=== PATIENT | female | born 1980 | race Caucasian/White ===

== ENCOUNTER 2019-07-10 10:00 | Emergency (ER) | payer OTHER, SELFPAY ==
--- NOTE | ~2019-07-10 | XR_ITS ---
EXAMINATION: XR elbow LT min 3V DATE: 07/10/2019 11:22 INDICATION: Left elbow deformity post fall TECHNIQUE: Anteroposterior, two oblique and lateral views of the left elbow were obtained. COMPARISON: None. FINDINGS: Approximately 1 mm anterior displacement of a small intra-articular no other fractures identified. Al ignment of the remainder of the bones is normal. Joint spaces are normal. Fracture involving the tip of the coronoid process. Small left elbow joint effusion with some displacement the anterior and post erior fat pads. IMPRESSION: 1. Small minimally displaced intra-articular fracture involving the tip of the coronoid process of th e proximal small bowel with likely secondary small left elbow joint effusion. Reviewed, dictated and finalized at location A. ONARY FUNCTION TECHNOLOGIST IMPRESSION: 1. Small minimally displaced intra-articular fracture involving the tip of the coronoid process of the proximal small bowel with likely secondary small left e lbow joint effusion.
--- NOTE | ~2019-07-10 | XR_ITS ---
EXAMINATION: XR wrist LT min 3V DATE: 07/10/2019 11:22 INDICATION: Left wrist injury post fall TECHNIQUE: Posteroanterior, ulnar deviation, oblique, and lateral views of the left wrist were obtain ed. COMPARISON: none FINDINGS: Bone alignment is normal. Portion of the distal diaphysis of the left fourth proximal phalanx is obsc ured by a metallic ring. No fracture. Joint spaces are normal. IMPRESSION: 1. No osseous abnormality. Reviewed, dictated and finalized at location A. O VISUAL EQUIPMENT RENTAL CLERK IMPRESSION: 1. No osseous abnormality.
[2019-07-10 10:02] VITALS: BP 113/55; PULSE 72; RESP 15; TEMP 37.4; O2SAT 100
--- NOTE | 2019-07-10 10:08 | PC.NURSE ---
SPOKE WITH DEBBIE BELTRAN ABOUT PT ARM, VERBAL ORDER FOR STAT ELBOW AND WRIST XRAYS AT THIS TIME.
--- NOTE | 2019-07-10 13:33 | ED.GENADULT ---
HPI - General Adult General Chief complaint: Extremity Injury, Upper Stated complaint: left arm inj Time Seen by Provider: 07/10/19 11:28 Source: patient Mode of arrival: ambulatory Limitations: no limitations History of Present Illness HPI narrative: Patient is a 38-year-old female who presents to emergency department for evaluation of left elbow injury that occurred walking this morning and rolling out of bed onto a right upper extremity injuring the elbow where she now has moderate aching pain pain is worse with activity and movements. Denies other injuries or complaints has not anything for pain Related Data Home Medications Medication Instructions Recorded Confirmed No Home Medications 07/10/19 07/10/19 Allergies Allergy/AdvReac Type Severity Reaction Status Date / Time No Known Allergies Allergy Unverified 07/10/19 11:22 Review of Systems Review of Systems: Narrative: CONSTITUTIONAL: Denies fever, chills, or sweats. SKIN: Positive for bruising and swelling MUSCULOSKELETAL: Positive for left elbow pain NEUROLOGIC: Denies numbness PMFSH Family History Family History Mother Family history of hypercholesterolemia Grandparent Family history of hypercholesterolemia, Onset Age: 79 Hypertension Family history of Parkinson's disease, Onset Age: 79 Carcinoma of colon, Onset Age: 79 Family history of lung cancer, Onset Age: 54 Family history of malignant neoplasm of breast Family history of emphysema, Onset Age: 54 Family history of congestive heart failure, Onset Age: 58 Family history of renal cell carcinoma, Onset Age: 79 Father Hypertension Sibling Hypertension Family history of malignant neoplasm of cervix Social History Social History Smoking status: Never smoker Tobacco type: e-cigarettes Alcohol intake: current Gender identity (if verbalized by the patient): Female Exam Narrative: Exam Narrative: GENERAL: Well-appearing, well-nourished, and in no acute distress. HEAD: Normocephalic, atraumatic. EYES: PERRLA and EOMI. ENT: Nares clear, no rhinorrhea or epistaxis. Mucous membranes moist. EXTREMITIES: Swelling and tenderness of the right elbow joint no other deformities of the extremity SKIN: Warm, dry, no rash. NEURO: No focal deficits. Alert and oriented x3. Neurovascularly intact. Capillary refill less than 2 seconds PSYCH: Normal mood and affect. Course Course Emergency Course: Patient in the room aware of discussion with orthopedic surgery agreeing to follow-up as directed Consultations Consultation #1: Discussed case with orthopedic surgeon who will follow patient in clinic Date: 07/10/19 Vital Signs Vital signs: Vital Signs Temperature 99.4 F 07/10/19 10:02 Pulse Rate 72 07/10/19 10:02 Respiratory Rate 15 07/10/19 10:02 Blood Pressure 113/55 L 07/10/19 10:02 Pulse Oximetry 100 07/10/19 10:02 Temperature 99.4 F 07/10/19 10:02 Pulse Rate 72 07/10/19 10:02 Respiratory Rate 15 07/10/19 10:02 Blood Pressure 113/55 L 07/10/19 10:02 Pulse Oximetry 100 07/10/19 10:02 Medical Decision Making MDM Narrative Medical decision making narrative: Patients injury or pain is consistent with musculoskeletal etiology. No signs of neurological or vascular compromise on exam. Compartments and tisues are soft without signs of compartment syndrome. Pain is felt appropriate for further evaluation on an outpatient basis. Vital Signs Vital Signs: Vital Signs Temperature 99.4 F 07/10/19 10:02 Pulse Rate 72 07/10/19 10:02 Respiratory Rate 15 07/10/19 10:02 Blood Pressure 113/55 L 07/10/19 10:02 Pulse Oximetry 100 07/10/19 10:02 Temperature 99.4 F 07/10/19 10:02 Pulse Rate 72 07/10/19 10:02 Respiratory Rate 15 07/10/19 10:02 Blood Pressure 113/55 L 07/10/19 10:02 Pulse Oximetry 100 07/10
[2019-07-10] MEDS: KETOROLAC (*BKC) 60 MG/2 ML VIAL 30 MG IM (14:07)
== END 2019-07-10 14:10 | disposition home or self-care (01) ==
PROVIDERS: Emergency Provider Family Medicine; PCP Internal Medicine
DX: S52.042A Displaced fracture of coronoid process of left ulna, initial encounter for closed fracture (principal); F17.290 Nicotine dependence, other tobacco product, uncomplicated; W06.XXXA Fall from bed, initial encounter
CPT/HCPCS: 29105; 73080; 73110; 96372; 99284; A4565; J1885

== ENCOUNTER 2020-01-27 09:58 | Emergency (ER) | payer OTHER, SELFPAY ==
[2020-01-27 10:04] VITALS: BP 104/51; PULSE 45; RESP 16; TEMP 36.4; O2SAT 100
--- NOTE | 2020-01-27 10:31 | ED.URI ---
HPI - URI/Sore Throat General Chief Complaint: Upper Respiratory Infection Stated Complaint: sore throat Source: patient and RN notes reviewed Limitations: no limitations History of Present Illness HPI Narrative: The patient, a non-smoker/occasional drinker, presents with sore throat. Patient states she has a 2-day history of sore scratchy throat, runny nose, associated with a white spot only this morning. No fever, cough, chest pain, loss of taste/smell, earache, travel history, sick family-she has children being homeschooled. Symptoms are mild, worse with swallowing mildly. Patient advised to be provided prescription for COVID testing today, as she mentioned she has a friend of a [id number] with COVID Related Data Allergies Allergy/AdvReac Type Severity Reaction Status Date / Time No Known Allergies Allergy Unverified 07/10/19 11:22 Review of Systems Review of Systems: Narrative: General/Constitutional: No weight loss,fever Eyes: N0: Redness,discharge Ears/Nose/Throat: No: Epistaxis,ear discharge Respiratory: Denies: Hemoptysis Gastrointestinal: No Vomiting, Bleeding-rectal Skin: No Lumps, eruption Neurologic: No Focal Weakness,Sz Hematologic: Denies: Petechiae/Purpura Psychiatric: No: Suicida ideationl All Other Systems: Reviewed and Negative PMFSH Social History Social History Smoking status: Never smoker Tobacco type: e-cigarettes/vaping Alcohol intake: current Gender identity (if verbalized by the patient): Female Comments At time of signature, agree with nursing past medical, surgical, social and family history. There is no relevant family history pertinent to the presenting complaint Exam Narrative: Exam Narrative: General Appearance: Well appearing, Well nourished EYE: PERRLA, Conjunctiva clear Ears: Auditory canal normal, TM normal Nose: Rhinorrhea, Mucousal erythema Mouth/Throat: MM moist, Uvula midline, Pharyngeal erythema Neck: Supple, No adenopathy Respiratory: No respiratory distress, Breath sounds equal, airway patent Skin: Warm, Dry Neurological: A&O x3, Normal affect Course Vital Signs Vital signs: Vital Signs Temperature 97.6 F 01/27/20 10:04 Pulse Rate 45 L 01/27/20 10:04 Respiratory Rate 16 01/27/20 10:04 Blood Pressure 104/51 L 01/27/20 10:04 Pulse Oximetry 100 01/27/20 10:04 Temperature 97.6 F 01/27/20 10:04 Pulse Rate 45 L 01/27/20 10:04 Respiratory Rate 16 01/27/20 10:04 Blood Pressure 104/51 L 01/27/20 10:04 Pulse Oximetry 100 01/27/20 10:04 MDM - URI/Sore Throat Lab Data Labs: Strep Screen Presumptive Negative *(Reference Range: Negative)* Discharge Plan Discharge Clinical Impression: Pharyngitis Qualifiers: Pharyngitis/tonsillitis etiology: unspecified etiology Qualified Code(s): J02.9 - Acute pharyngitis, unspecified Patient Disposition: Home, Self-Care Condition: Stable Instructions: Antibiotic Form, Pharyngitis (ED) Prescriptions: New azithromycin 250 mg tablet See Rx Instructions .ROUTE .COMPLEX Qty: 6 RF: 0 Lidocaine Viscous 2 % solution 5 ml MUCOUS MEM QID PRN (Reason: pain) Qty: 100 RF: 0 Interventions: Discharge Disposition Last Done: 01/27/20 10:40 Follow-up/Referrals: Sanjeev Mejia MD [Primary Care Provider] - Discharge Date/Time: 01/27/20 10:42
== END 2020-01-27 10:42 | disposition home or self-care (01) ==
PROVIDERS: Emergency Provider Emergency Medicine; PCP Internal Medicine
DX: J02.9 Acute pharyngitis, unspecified (principal); F17.200 Nicotine dependence, unspecified, uncomplicated
CPT/HCPCS: 87081; 87880; 99213; G0463

== ENCOUNTER → 2021-02-25 03:32 | Outpatient (CLI) | payer OTHER, SELFPAY ==
[2021-02-25 19:14] LABS: SARS-CoV-2 RNA PCR Negative
== END ==
PROVIDERS: PCP Family Medicine; Visit Provider Family Medicine
DX: Z20.822 Contact with and (suspected) exposure to COVID-19 (principal)
CPT/HCPCS: C9803; U0003; U0005

== ENCOUNTER → 2021-04-14 10:02 | Outpatient (CLI) | payer OTHER, MEDICAID, SELFPAY ==
[2021-04-14 18:36] LABS: SARS-CoV-2 RNA PCR Negative
== END ==
PROVIDERS: PCP Family Medicine; Visit Provider Family Medicine
DX: R05.9 Cough, unspecified (principal); Z20.822 Contact with and (suspected) exposure to COVID-19
CPT/HCPCS: C9803; U0003; U0005

== ENCOUNTER 2024-04-16 09:41 | Emergency (ER) | payer OTHER, SELFPAY ==
--- NOTE | 2024-04-16 09:45 | ED.URI ---
HPI - URI/Sore Throat General Chief Complaint: Upper Respiratory Infection Stated Complaint: Upper Respiratory Symptoms History of Present Illness HPI Narrative: 43 y/o female presented with c/o nasal congestion, fatigue, cough and head pressure for one week. Denies sob, wheezing, n/v/d/f/c. Taking Sudafed. Works as a school nurse. Related Data Home Medications Medication Instructions Recorded Confirmed losartan 25 mg tablet 25 mg PO DAILY 04/16/24 04/16/24 norgestimate-ethinyl estradiol 1 tablet PO DAILY 04/16/24 04/16/24 0.18 mg/0.215mg/0.25mg-35 mcg(28)tablet (Tri-Sprintec (28)) Allergies Allergy/AdvReac Type Severity Reaction Status Date / Time No Known Allergies Allergy Unverified 04/16/24 09:52 Review of Systems Review of Systems: CONSTITUTIONAL: Denies body aches, fever, chills, or sweats. EYES: Denies visual changes, redness, or discharge. ENT: reports rhinorrhea, congestion, denies sore throat or otalgia. CARDIOVASCULAR: Denies chest pain, palpitations, or edema. RESPIRATORY: Denies dyspnea. GASTROINTESTINAL: Denies abdominal pain, nausea, vomiting, or diarrhea. SKIN: Denies rash NEUROLOGIC: reportss headache PMFSH Family History Family History Mother Family history of hypercholesterolemia Grandparent Family history of hypercholesterolemia, Onset Age: 79 Hypertension Family history of Parkinson's disease, Onset Age: 79 Carcinoma of colon, Onset Age: 79 Family history of lung cancer, Onset Age: 54 Family history of malignant neoplasm of breast Family history of emphysema, Onset Age: 54 Family history of congestive heart failure, Onset Age: 58 Family history of renal cell carcinoma, Onset Age: 79 Father Hypertension Sibling Hypertension Family history of malignant neoplasm of cervix Social History Social History Smoking status: Never smoker Tobacco type: e-cigarettes/vaping Alcohol intake: current Gender identity (if verbalized by the patient): Female Exam Narrative: GENERAL: mildly Ill-appearing, no acute distress. EYES: conjunctivae clear ENT: Mucous membranes moist. Lesion to lower lip, dried c/w fever blister. TMs pearly elizondo with normal light reflex bilaterally; no tragal tenderness. Oropharynx erythematous without lesions. No drooling, no hoarseness, no trismus, uvula midline. No tripod positioning, hot potato voice, or soft palate swelling. NECK: Supple. No lymphadenopathy CHEST: Clear to auscultation, breath sounds equal. No respiratory distress, speaks in full sentences. HEART: Regular rate and rhythm. No murmur heard. SKIN: Warm, dry, no rash. NEURO: Alert and oriented x3. Course Course Emergency Course: Patient is aware of diagnosis, understands and agrees to treatment plan. Anticipatory guidance given. Patient agrees to follow-up as directed and is aware of reasons to seek care at the emergency department. Portions of this record may have been created with voice recognition software Level of Care: Express Care Visit MDM - URI/Sore Throat MDM Narrative Medical decision making narrative: Discussed physical exam findings, Advise supportive treatments. Patient is appropriate for outpatient treatment and follow-up. Differential Diagnosis Differential diagnosis: Likely upper respiratory infection, viral infection and pharyngitis Discharge Plan Discharge Clinical Impression: Upper respiratory infection Patient Disposition: Home, Self-Care Condition: Stable Instructions: Antibiotic Form, Upper Respiratory Infection (ED) Additional Instructions: Recommend Flonase spray and Zyrtec (or Claritin/Kaylyn) over the counter Cough syrup may cause drowsiness; avoid driving or take it at night time. Tylenol 1000mg every 8 hours as needed for pain Symptomatic treatment includes: rest, fluids, and increase humidity of the air at home. If no improvement in the next 3-5 days you can start the antibiotic Follow up with your primary care provider in 1 week. Go to the ER for worsening symptoms or concerns. Prescriptions: New amoxicillin-pot clavulanate 875-125 mg tablet 1 tablet PO Q12H 7 Days Qty: 14 0RF No Action losartan 25 mg tablet 25 mg PO DAILY norgestimate-ethinyl estradiol [Tri-Sprintec (28)] 0.18/0.215/0.25 mg-35 mcg (28) tablet 1 tablet PO DAILY Follow-up/Referrals: PHYSICIAN,ENTERTAINMENT DANCER [Primary Care Provider] - Time of Disposition: 09:57
[2024-04-16 09:48] VITALS: BP 146/90; PULSE 82; RESP 16; TEMP 36.4; O2SAT 100
== END 2024-04-16 09:59 | disposition home or self-care (01) ==
PROVIDERS: Emergency Provider Nurse Practitioner Family
DX: J06.9 Acute upper respiratory infection, unspecified (principal); F17.290 Nicotine dependence, other tobacco product, uncomplicated
CPT/HCPCS: 99213; G0463

== ENCOUNTER 2024-07-03 13:29 | Emergency (ER) | payer OTHER, SELFPAY ==
[2024-07-03 13:44] VITALS: BP 131/87; PULSE 76; RESP 16; TEMP 36.7; O2SAT 100
--- NOTE | 2024-07-03 13:52 | ED.URI ---
HPI - URI/Sore Throat General Chief Complaint: Upper Respiratory Infection Stated Complaint: Sinus Infection Symptoms Time Seen by Provider: 07/03/24 14:05 Source: patient, RN notes reviewed and old records reviewed Mode of arrival: ambulatory Limitations: no limitations History of Present Illness HPI Narrative: 43 year old female accompanied by son presents to express care with complaints of sinus congestion with drainage and headache with sinus pressure which started on the 24 of June with 4 days of fevers which did seem to get better till Yesterday. Patient reports that she has yellow green nasal congestion and drainage, with headache and pressure. Patient reports no present fevers, chills or body aches, has been taking Ibuprofen, Tylenol and Sudafed. MD elicited complaint: rhinorrhea, nasal congestion, sinus pain and other (headache) Onset (ago): day(s) (10) Severity: moderate Able to tolerate fluids by mouth: Yes Treatments prior to arrival: acetaminophen, ibuprofen and other (Sudafed) Related Data Home Medications ?Medication ?Instructions ?Recorded ?Confirmed ?Last Taken ?Type losartan 25 mg tablet 25 mg PO DAILY 04/16/24 07/03/24 Unknown History norgestimate-ethinyl estradiol 1 tablet PO DAILY 04/16/24 07/03/24 Unknown History 0.18 mg/0.215mg/0.25mg-35 mcg(28)tablet (Tri-Sprintec (28)) Allergies Allergy/AdvReac Type Severity Reaction Status Date / Time No Known Allergies Allergy Unverified 07/03/24 13:40 Review of Systems Review of Systems: CONSTITUTIONAL: Denies malaise, chills, sweats, or fever. EYES: Denies visual changes, redness, or discharge. ENT: Reports rhinorrhea, congestion, sinus pain, no otalgia and no sore throat. CARDIOVASCULAR: Denies chest pain, palpitations, or edema. RESPIRATORY: Reports cough.? Denies dyspnea. GASTROINTESTINAL: Denies abdominal pain, nausea, vomiting, diarrhea SKIN: Denies rash or itching. MUSCULOSKELETAL: Denies myalgia. NEUROLOGIC: Reports headache. All systems reviewed & are unremarkable except as noted in HPI and below PMFSH Past Medical History Medical History Hypertension Family History Family History Mother Family history of hypercholesterolemia Grandparent Family history of hypercholesterolemia, Onset Age: 79 Hypertension Family history of Parkinson's disease, Onset Age: 79 Carcinoma of colon, Onset Age: 79 Family history of lung cancer, Onset Age: 54 Family history of malignant neoplasm of breast Family history of emphysema, Onset Age: 54 Family history of congestive heart failure, Onset Age: 58 Family history of renal cell carcinoma, Onset Age: 79 Father Hypertension Sibling Hypertension Family history of malignant neoplasm of cervix Social History Social History Smoking status: Never smoker Tobacco type: e-cigarettes/vaping Alcohol intake: current Gender identity (if verbalized by the patient): Female Comments At time of signature, agree with nursing past medical, surgical, social and family history. There is no relevant family history pertinent to the presenting complaint Exam Narrative: GENERAL: Well-appearing, well-nourished, and in no acute distress. HEAD: Normocephalic EYES: PERRLA, conjunctivae clear ENT: Nares clear, turbinates edematous and erythematous,yellow green discharge, sinus pressure headache. Mucous membranes moist. TM pearly elizondo with dull light reflex bilaterally; no tragal tenderness. Oropharynx erythematous without lesions. Tonsils not enlarged and without exudate, no drooling, no hoarseness, no trismus, uvula midline.post nasal drainage NECK: Supple. No lymphadenopathy CHEST: Clear to auscultation, breath sounds equal. No wheezing, rhonchi, rales, or stridor. No respiratory distress, speaks in full sentences.SAO2 100% on room air HEART: Regular rate and rhythm. No murmur heard. SKIN: Warm, dry, no rash. NEURO: Alert and oriented x3. PSYCH: Normal mood and affect Course Course Emergency Course: Patient is aware of diagnosis, understands and agrees to treatment plan.? Anticipatory guidance given.? Patient agrees to follow-up as directed and is aware of reasons to seek care at the emergency department. Portions of this record may have been created with voice recognition software Level of Care: Express Care Visit Vital Signs Vital signs: Vital Signs Temperature 36.7 C 07/03/24 13:44 Pulse Rate 76 07/03/24 13:44 Respiratory Rate 16 07/03/24 13:44 Blood Pressure 131/87 07/03/24 13:44 Pulse Oximetry 100 07/03/24 13:44 Temperature 36.7 C 07/03/24 13:44 Pulse Rate 76 07/03/24 13:44 Respiratory Rate 16 07/03/24 13:44 Blood Pressure 131/87 07/03/24 13:44 Pulse Oximetry 100 07/03/24 13:44 Reviewed MDM - URI/Sore Throat MDM Narrative Medical decision making narrative: Differential diagnosis considered: Hooker virus, strep pharyngitis, allergic rhinitis, upper respiratory tract infection, sinusitis, rhinosinusitis, nasopharyngitis. viral pharyngitis, otitis media, otitis externa, pneumonia, bronchitis, viral cough syndrome, viral syndrome, and influenza.? Exam findings show no acute concerns or changes; patient is non-toxic appearing and is in no distress.? Patient is appropriate for outpatient treatment and follow-up. Differential Diagnosis Differential diagnosis: Likely upper respiratory infection, sinusitis and viral infection Medical Records Attestation: I reviewed the patient's medical records. Lab Data Attestation: I reviewed the patient's lab results. Critical Care Time Critical Care Time Critical Care Time: No Discharge Plan Discharge Clinical Impression: Sinusitis Qualifiers: Sinusitis location: pansinusitis Chronicity: acute Recurrence: non-recurrent Qualified Code(s): J01.40 - Acute pansinusitis, unspecified Patient Disposition: Home, Self-Care Condition: Stable Instructions: Antibiotic Form, Sinusitis (ED) Additional Instructions: Increase fluids especially juices and water [id number] cough and cold medicine of your choice for your symptoms Zyrtec Claritin or Kaylyn daily recommend Coricidin brand decongestant heat to the face 20-30 minutes 4-6 times a day for pain Salt water gargles, throat lozenges or throat sprays as desired Tylenol or ibuprofen for any fever pain antibiotic as prescribed complete all doses If your symptoms persist, change or worsen significantly before you can contact your personal physician then please, without delay, go to the emergency department for further evaluation. Follow-up with PCP in 7-10 days or sooner if needed Follow up with PCP soon in regards to your blood pressure which is elevated above threshold for referral. Blood pressure above 120/80 may indicate pre-hypertension. Patient Language: Serbian Prescriptions: New amoxicillin-pot clavulanate 875-125 mg tablet 1 tablet PO Q12H Qty: 20 0RF Rx Instructions: take with food No Action losartan 25 mg tablet 25 mg PO DAILY norgestimate-ethinyl estradiol [Tri-Sprintec (28)] 0.18/0.215/0.25 mg-35 mcg (28) tablet 1 tablet PO DAILY Follow-up/Referrals: Seth,DEBBIE Ramos [Primary Care Provider] - Time of Disposition: 14:21 Quality [place] Coma Scale Eyes: Open Verbal: Oriented and Alert Motor: Follows Commands [place] Coma Total Score: 15
== END 2024-07-03 14:28 | disposition home or self-care (01) ==
PROVIDERS: Emergency Provider Registered Nurse; PCP Physician Assistant
DX: J01.40 Acute pansinusitis, unspecified (principal); I10 Essential (primary) hypertension
CPT/HCPCS: 99203; G0463

== ENCOUNTER 2024-07-27 10:14 | Outpatient (CLI) | payer OTHER, SELFPAY ==
--- NOTE | ~2024-07-27 | MM_ITS ---
EXAMINATION: MM screening manuela BI w milana HISTORY: Screening mammogram TECHNIQUE: Craniocaudal and mediolateral oblique 3-D tomosynthesis images were obtained and synthetic 2-D images were generated. CAD analysis was submitted and interpreted. COMPARISON: No prior mammogram is available for comparison at this institution. BREAST PARENCHYMAL COMPOSITION:Not Dense. There are scattered areas of fibroglandular density. FINDINGS: No suspicious mass, calcification, or architectural distortion are identified in either carlos ast to suggest malignancy. There has been no suspicious interval change. IMPRESSION: No mammographic evidence of malignancy. Recommend routine screening mammography in one year. BI-RADS Category 1: Negative Reviewed, dictated and finalized at location . H TRUCK DRIVER
== END 2024-07-27 10:15 | disposition home or self-care (01) ==
PROVIDERS: PCP Obstetrics & Gynecology; Visit Provider Physician Assistant
DX: Z12.31 Encounter for screening mammogram for malignant neoplasm of breast (principal)
CPT/HCPCS: 77063; 77067